=== PATIENT | female | born 1935 | race Caucasian/White ===

== ENCOUNTER → 2024-06-16 | Outpatient (CLI) | payer MEDICARE, SELFPAY ==
--- NOTE | 2024-06-16 10:45 | XR_ITS ---
Examination: PA lateral chest 2 views TECHNIQUE: Upright PA lateral chest 2 views Exam date and time: Generally 2024 1136 hours Comparison October 09, 2023 INDICATIONS: History pulmonary nodule FINDINGS: Again noted 5 mm pulmonary nodule right midlung Normal heart size Calcified granuloma left upper lobe IMPRESSION: Consider 6 month follow-up PA lateral chest to document stability of 5 mm pulmonary nodule right midlung
== END | disposition home or self-care (01) ==
LOC: CDIM 10:13
PROVIDERS: PCP Family Medicine; Referring Provider Family Medicine; Visit Provider Family Medicine
DX: R91.1 Solitary pulmonary nodule (principal)
CPT/HCPCS: 71046

== ENCOUNTER → 2025-01-11 | Outpatient (CLI) | payer OTHER, SELFPAY ==
--- NOTE | 2025-01-11 14:33 | XR_ITS ---
Examination: PA lateral chest 2 views TECHNIQUE: Upright PA lateral chest 2 views Date and time: January 11, 2025 1459 hours Comparison June 16, 2024 INDICATIONS: History solitary pulmonary nodule FINDINGS: 8mm calcified granuloma left upper lobe noted on chest films dating to 2019 Mild prominence left ventricle Mild vascular congestion. Increased AP dimension chest Kyphosis dorsal spine secondary to chronic osteoporotic mild wedging mid dorsal vertebral bodies Stable 4 mm pulmonary nodule right midlung compared with October 09, 2023 IMPRESSION: Recommend continued 6 month follow-up chest PA and lateral to document stability of right midlung pulmonary nodule
== END | disposition home or self-care (01) ==
LOC: CDIM 14:18
PROVIDERS: PCP Internal Medicine; Referring Provider Internal Medicine; Visit Provider Internal Medicine
DX: R91.1 Solitary pulmonary nodule (principal)
CPT/HCPCS: 71046

== ENCOUNTER 2025-05-11 19:38 | Emergency (ER) | payer OTHER, SELFPAY ==
[2025-05-11 19:42] VITALS: PULSE 110; RESP 24; O2SAT 96
[2025-05-11 19:47] VITALS: BMI 27.3
--- NOTE | 2025-05-11 19:49 | XR_ITS ---
Examination: Knee, right, 3 views Technique: Knee AP, lateral, oblique 3 views Date and time of exam: 2024, 2001 hours INDICATIONS: Patient fell today with into the knee, knee pain. FINDINGS: Severe osteopenia. No acute fracture No dislocation IMPRESSION: No acute fracture Advanced narrowing medial joint space Given the severe osteopenia, recommend short-term follow-up knee films as clinically warranted
--- NOTE | 2025-05-11 19:49 | XR_ITS ---
Examination: CT brain head without contrast. 2-D sagittal coronal reconstructions Date and time of exam: May 11, 2025, 2030 hours INDICATIONS: Ground-level fall today with injury to the head, head pain CTDI: vol (mGy): 45.2 DLP: (mGycm): 873 Technique: Multiple CT axial sections of the brain have been obtained, 5 mm slice thickness. Contrast has not been administered. 2-D sagittal, coronal reconstructions have been obtained Low dose protocols were performed. One or more of the following dose reduction techniques were used; automated exposure control, adjustment of the mA and/or KV according to patient size, use of iterative reconstruction technique. Findings: No significant ventricular enlargement. Intra-axial or extra-axial hemorrhage density is not seen. No mass effect or midline shift Basal cisterns are not remarkable. Fourth ventricle is midline. Cranial vault intact. Large area of encephalomalacia left occipital lobe Impression: Negative for acute hemorrhage, mass effect or midline shift
--- NOTE | 2025-05-11 19:49 | XR_ITS ---
Examination: CT cervical spine without contrast 2-D sagittal reconstructions 2-D coronal reconstructions 3-D reconstructions. Exam date and time: May 11, 2025, 2039 hours INDICATIONS: Patient fell today with injury of the neck, neck pain CTDI:vol (mGy) 13.5 DLP: (mGycm) 316 Technique: Multiple 2 mm axial sections of the cervical spine have been obtained. The coronal and sagittal reconstructions have been obtained. 3-D reconstructions have been obtained. Low dose protocols were performed. One or more of the following dose reduction techniques were used; automated exposure control, adjustment of the mA and/or KV according to patient size, use of iterative reconstruction technique. Findings: Axial sections demonstrate intact base of the skull. C1 exhibit satisfactory relationship to the odontoid. No acute cervical vertebral body fracture seen. Alignment posterior spinous processes satisfactory. Impression: No acute cervical fracture.
--- NOTE | 2025-05-11 19:49 | XR_ITS ---
Examination: Wrist, left 3 views Technique: Wrist AP, oblique, lateral 3 views Date and time of exam: May 11, 20252005 hours INDICATIONS: Patient fell today with injury to the wrist, wrist pain. FINDINGS: Acute comminuted impacted fracture distal radial metaphysis Comminuted fracture distal ulna Carpal bones intact Severe osteopenia IMPRESSION: Acute comminuted impacted fracture distal radial metaphysis
[2025-05-11 19:50] VITALS: BP 151/98; PULSE 104; RESP 24; TEMP 36.9; O2SAT 98
--- NOTE | 2025-05-11 19:52 | PD.EDADULT ---
ED General RME/HPI General Chief complaint: Fall Stated complaint: FALL Time Seen by Provider: 05/11/25 19:43 Arrival date/time: 05/11/25 19:38 CC: Left wrist pain right knee pain HPI status post fall. HPI approximately 2-1/2 hours ago the patient fell while outside feeding the cats. She was caught in a kneeling position holding onto a chair before she was discovered EMS was contacted and presents her to the emergency room where after reporting that she was found shivering in that same position. Patient denies LOC but admits she is on thinners secondary to A-fib patient is awake alert oriented complaining of left wrist wrist pain and right knee pain denies altered mentation nausea vomiting headache shortness of breath or difficulty breathing. Related Data Home Medications ?Medication ?Instructions ?Recorded ?Confirmed atorvastatin 10 mg tablet (Lipitor) 10 mg PO HS #0 tabs 10/26/15 07/14/22 cranberry fruit 400 mg capsule 4,200 mg PO QDAY ##0 10/26/15 07/14/22 levothyroxine 25 mcg tablet 25 mcg PO QDAY #0 tabs 10/26/15 07/14/22 omeprazole 40 mg capsule,delayed 40 mg PO QDAY 03/24/19 07/14/22 release carvedilol 6.25 mg tablet 6.25 mg PO BID 04/04/22 07/14/22 cyanocobalamin (vitamin B-12) 1,000 mcg PO QDAY 04/04/22 07/14/22 1,000 mcg tablet (Vitamin B-12) digoxin 125 mcg (0.125 mg) tablet 125 mcg PO EVERYOTHERDAY 04/04/22 07/14/22 furosemide 40 mg tablet 40 mg PO DAILY 04/04/22 07/14/22 magnesium 500 mg tablet 500 mg PO QDAY 04/04/22 07/14/22 potassium chloride 10 mEq 10 meq PO BID 04/04/22 07/14/22 tablet,extended release (Klor-Con) vit no.95-ferrous 1 tab PO QDAY 04/04/22 07/14/22 fumarate 28 mg-folic acid 800 mcg tablet () warfarin 5 mg tablet 5 mg PO HS 04/04/22 07/14/22 Previous Rx's ?Medication ?Instructions ?Recorded meloxicam 7.5 mg tablet 7.5 mg PO QDAY #10 tabs 05/11/25 nitrofurantoin 100 mg PO BID #14 caps 05/11/25 monohydrate/macrocrystals 100 mg capsule (Macrobid) ondansetron 4 mg disintegrating 4 mg PO Q8H #20 tabs 05/11/25 tablet Allergies Allergy/AdvReac Type Severity Reaction Status Date / Time soap Allergy Severe Rash Verified 05/11/25 19:46 amoxicillin Allergy Intermediate RASH, Verified 05/11/25 19:46 ITCHING latex Allergy Verified 05/11/25 19:46 Review of Systems Review of Systems Narrative Review of Systems: GEN: No fever, no chills, no weight loss EYES: No discharge, no visual changes, no pain HEENT: No ear pain, no congestion, no sore throat PULM: No shortness of breath, no cough, no congestion CV: No chest pain, no dyspnea on exertion, no palpitations GI: No nausea, no vomiting, no diarrhea, no pain, no constipation : No frequency, no urgency, no dysuria MUSC/SKEL: + joint pain, no back pain SKIN: No rash PSYCH: No hallucinations, no depression HEME/LYMPH: No easy bleeding or bruising tendencies NEURO: No weakness, no headache Past Medical History Past Medical History NEUROLOGIC: Negative Neurological Disorders or Seizures CARDIAC: Positive Cardiac Disorders, Atrial Fibrillation, Hypercholesterolemia and Congestive Heart Failure; Negative Angina RESPIRATORY: Positive Asthma; Negative Chronic Obstructive Pulmonary Disease (COPD) GASTROINTESTINAL: Positive Gastrointestinal Disorders, Ley's Esophagus, Hiatal Hernia, Hemorrhoids and Gastroesophageal Reflux Disease GENITOURINARY: Positive Inguinal Hernia; Negative Renal Disease REPRODUCTIVE: Positive Previous Pregnancies MUSCULOSKELETAL: Positive Musculoskeletal Disorders, Arthritis and Osteoporosis ENT: Positive Cataracts ENDOCRINE: Positive Hypothyroidism; Negative Diabetes Mellitus Type 1 or Diabetes Mellitus Type 2 HEMATOLOGIC: Positive Blood Disorders (takes warfarin) and Sickle Cell Disease OTHER HISTORY: Positive Chicken Pox; Negative Autoimmune Disease, Blood Transfusions, Blood Transfusion Reaction, Anesthesia Reactions or Cancer Family History FAMILY HISTORY: Negative Family Psychiatric Problems, Family Respiratory Disorders, Family Cardiac Disorders, Family Gastrointestinal Problems, Family Cancer, Family Surgery or Family Anesthesia Reaction Surgical History SURGICAL: Positive Hysterectomy; Negative Endocrine Surgery, Nephrectomy or Joint Replacement Social History SMOKING STATUS: Never smoker ED Exam Narrative Physical exam: [General: Obese not in any acute distress Head normocephalic HEENT: Within acceptable limits Neck is supple nontender Chest equal chest rise nontender to palpation Respiratory: Clear to auscultation no wheezes crackles or rubs CV: Rate rhythm is regular no murmurs rubs or clicks Abdomen is distended secondary to body habitus soft nontender no masses positive bowel sounds all 4 quadrants Back: No CVA tenderness no spinous process tenderness from cervical spine thoracic and lumbar spine Skin: Intact no petechiae rash induration ulceration or crepitus Extremities: Decreased range of motion of the left wrist secondary to pain cap refill in the digits less than 2 seconds on initial assessment fingers are cold to touch note: However patient was immobilized outside for 2 hours and 40 degree weather. Moving all other extremities against resistance cap refill less than 2 seconds neurosensory intact Neuro: Awake alert oriented x3 Glascow coma 15 no focal deficits] Course Quality Measures none Orders Category Date Time Status Miscellaneous Nursing Order NOW Care 05/11/25 22:09 Active Splint / Immobilizer STAT Care 05/11/25 22:[address] cervical spine wo con Stat Exams 05/11/25 19:[address] head/brain wo con Stat Exams 05/11/25 19:49 Completed XR ankle RT 2V Stat Exams 05/11/25 21:56 Completed XR knee RT 3V Stat Exams 05/11/25 19:49 Completed XR wrist comp LT min 3V Stat Exams 05/11/25 19:49 Completed CBC Stat Lab 05/11/25 20:04 Completed CMP [Comprehensive Metabolic Panel] Stat Lab 05/11/25 20:04 Completed Creatine Kinase Stat Lab 05/11/25 20:04 Completed Urinalysis Stat Lab 05/11/25 21:01 Completed Morphine* Inj Med 05/11/25 21:13 Discontinued 2 mg IVP X1 ONE Ondansetron Inj [Zofran Inj] Med 05/11/25 21:13 Discontinued 4 mg IVP X1 ONE Sodium Chloride 0.9% 1000 ml [Ns] 1,000 ml Med 05/11/25 22:37 Active IV 999 mls/hr cefTRIAXone/D5w 1gm IV premix [Rocephin/D5w 1gm IV Med 05/11/25 22:39 Pending premix] 1 gm in 50 ml IV X1 oxyCODONE/APAP 5/325 [Percocet 5/325] Med 05/11/25 22:16 Discontinued 1 tab PO X1 ONE Vital Signs Vital signs: Vital Signs Temperature 98.4 F 05/11/25 19:50 Pulse Rate 104 H 05/11/25 19:50 Respiratory Rate 24 H 05/11/25 19:50 Blood Pressure 151/98 H 05/11/25 19:50 Pulse Oximetry (%) 98 05/11/25 19:50 Oxygen Delivery Method Room Air 05/11/25 19:50 Discharge Plan Plan Patient Disposition: HOME (Self Care) Patient condition on transfer: Stable Prescriptions/Referrals Prescriptions/Med Rec: New meloxicam 7.5 mg tablet 7.5 mg PO QDAY Qty: 10 0RF ondansetron 4 mg tablet,disintegrating 4 mg PO Q8H Qty: 20 0RF nitrofurantoin monohyd/m-cryst [Macrobid] 100 mg capsule 100 mg PO BID Qty: 14 0RF Rx Instructions: must administer with a meal/food No Action atorvastatin [Lipitor] 10 MG tablet 10 mg PO HS Qty: 0 levothyroxine 25 mcg Tablet 25 mcg PO QDAY Qty: 0 cranberry fruit 400 MG capsule 4,200 mg PO QDAY Qty: 0 omeprazole 40 mg capsule,delayed release(DR/EC) 40 mg PO QDAY Patient Comments: TAKE ONE CAPSULE BY MOUTH DAILY furosemide 40 mg tablet 40 mg PO DAILY Patient Comments: TAKE 1 TABLET BY MOUTH ONCE A DAY FOR HEART magnesium 500 mg Tablet 500 mg PO QDAY carvedilol 6.25 mg tablet 6.25 mg PO BID Patient Comments: TAKE ONE TABLET BY MOUTH TWICE A DAY WITH FOOD FOR 90 DAYS cyanocobalamin (vitamin B-12) [Vitamin B-12] 1,000 mcg Tablet 1,000 mcg PO QDAY potassium chloride [Klor-Con 10] 10 mEq tablet extended release 10 meq PO BID Patient Comments: TAKE 1 TABLET BY MOUTH TWICE A DAY WITH FOOD warfarin 5 mg tablet 5 mg PO HS digoxin 125 mcg (0.125 mg) tablet 125 mcg PO EVERYOTHERDAY Patient Comments: TAKE ONE TABLET BY MOUTH DAILY FOR HEART 90 PNV no.95-ferrous fumarate-FA [] 28 mg iron- 800 mcg Tablet 1 tab PO QDAY Referrals: No Primary/Family,Physician [Primary Care Provider] - In 1 week Marcio Chen MD [Physician, Orthopedics] - In 1 week Problem List Clinical Impression: Fall, Fracture of wrist, Ankle contusion, UTI (urinary tract infection) Patient/Caregiver Discharge Instructions Other Activity Instructions:: You are going to be stiff and sore for the next several days use the medications for intermittent nausea and for pain to give you temporary relief. Alternate between the pain medication and Tylenol. Make sure you continue to take all your other medications as prescribed. Follow-up with the orthopod listed above. If there is a worsening of symptoms in spite of the medications return to the emergency room for reevaluation. Education Materials: ED Soft Tissue Contusion, ED Fracture, Wrist, General Print Language: Syrian Stand Alone Forms: [facility] Award Info., Patient Portal Info Letter PIPPA/PHOEBE Supervising Physician PIPPA/PHOEBE Supervising Physician: Fabricio Claudio ENP [facility] Clinical Information Provided by: patient and EMS Medical Records reviewed [facility] and EMS Meds/Rx considered, not ordered None Labs/Rad/Tests considered, not ordered None Chronic Illness/Social Conditions Explain: A-fib on thinners Labs Labs: interpreted by me Lab(s) Interpretation(s): CBC shows a mild leukocytosis of 15.7 no anemia thrombocytopenia CMP shows no significant electrolyte imbalances renal impairment transaminitis or T. bili elevation. Creatinine kinase at 229. Urine is turbid nitrite and leukocyte esterase positive. WBCs at 11 squamous epithelial at 64+ bacteria. Imaging Imaging interpretation: interpreted by me Imaging Interpretation(s): Ankle x-ray shows no acute fracture Wrist x-ray shows an impacted comminuted fracture and minimally displaced. CT head and C-spine are negative. Right knee is negative for fracture malalignment or dislocation. Medication Administration(s) none Medication Administration History Sodium Chloride (Ns) 1,000 mls @ 999 mls/hr IV .Q1H1M ONE Stop: 05/11/25 23:37 Ceftriaxone Sodium/Dextrose (Rocephin/D5w 1gm Iv Premix) 1 gm in 50 mls @ 100 mls/hr IV X1 ONE Stop: 05/11/25 23:08 Discontinued Medications Morphine Sulfate (Morphine Sulf Inj 4 Mg/Ml Vial) 2 mg IVP X1 ONE Stop: 05/11/25 21:14 Last Admin: 05/11/25 21:22 Dose: 2 mg Documented By: CLARA Ondansetron HCl (Ondansetron Inj 2 Mg/Ml Inj 2 Ml) 4 mg IVP X1 ONE; Protocol Stop: 05/11/25 21:14 Last Admin: 05/11/25 21:22 Dose: 4 mg Documented By: CLARA Oxycodone/Acetaminophen (Oxycodone/Apap 5/325 Tablet) 1 tab PO X1 ONE Stop: 05/11/25 22:17 Last Admin: 05/11/25 22:25 Dose: 1 tab Documented By: CLARA Diagnosis Differential Diagnosis ED Complaint MDM: Closed injury neck fracture elbow fracture wrist fracture knee fracture
[2025-05-11 20:59] LABS: Basophils # (Auto) 0.0 Thou/mm3 (0.0-0.2); Basophils % (Auto) 0 % (0-2.5); Eosinophils # (Auto) 0.1 Thou/mm3 (0.0-0.5); Eosinophils % (Auto) 0 % (0-10); Hematocrit 38.4 % (36.0-46.0); Hemoglobin 12.3 g/dL (12.0-16.0); Immature Granulocytes Auto 0.17 Thou/mm3 (0.00-0.00); Lymphocytes # (Auto) 1.8 Thou/mm3 (1.0-4.8); Lymphocytes % (Auto) 11 % (10-50); Mean Corpuscular HGB Conc 32.0 g/dl (31.0-37.0); Mean Corpuscular Hemoglobin 32.5 pg (25.0-35.0); Mean Corpuscular Volume 102 fL (80-100); Monocytes # (Auto) 1.7 Thou/mm3 (0.0-0.8); Monocytes % (Auto) 11 % (0-12); Neutrophils # (Auto) 11.9 Thou/mm3 (1.8-7.7); Neutrophils % (Auto) 76 % (37-80); Nucleated Red Blood Cell # 0.00 Thou/mm3 (0.00-0.00); Nucleated Red Blood Cell % 0 /100 WBC (0); Platelet Count 150 Thou/mm3 (140-440); RDW Standard Deviation 52.6 fL (36.4-46.3); Red Blood Count 3.78 Miln/mm3 (4.00-5.20); White Blood Count 15.7 Thou/mm3 (3.6-11.0)
[2025-05-11 21:15] LABS: Collection Type, Urine Clean Catch
[2025-05-11 21:17] LABS: Alanine Aminotransferase 26 U/L (10-49); Albumin, Serum 4.3 gm/dL (3.4-4.8); Albumin/Globulin Ratio 1.8 (1.2-2.2); Alkaline Phosphatase 51 U/L (46-116); Anion Gap 12 (7-16); Aspartate Amino Transferase 38 U/L (0-34); BUN/Creatinine Ratio 22 Ratio (12-20); Bilirubin,Total 0.7 mg/dL (0.3-1.2); Blood Urea Nitrogen 22 mg/dL (9-23); Calcium 9.4 mg/dL (8.3-10.6); Calcium (Corrected) 9.4 mg/dL (8.5-10.1); Carbon Dioxide 25.6 mMol/L (20.0-31.0); Chloride 107 mMol/L (98-107); Creatine Kinase 229 U/L (34-171); Creatinine (Component) 1.0 mg/dL (0.6-1.3); Estimated Creatinine Clearance 33.8 mL/min (>60); Globulin 2.4 gm/dL (2.3-3.5); Glucose 108 mg/dL (74-106); Osmolality,Calculated 293 (275-295); Potassium 4.2 mMol/L (3.4-5.1); Sodium 145 mMol/L (136-145); Total Protein 6.7 gm/dL (5.7-8.2); eGFR 54 See Note
[2025-05-11] MEDS: ONDANSETRON INJ 2 MG/ML INJ 2 ML 4 MG IVP (21:22)
[2025-05-11] MEDS: MORPHINE SULF INJ 4 MG/ML VIAL 2 MG IVP (21:22)
[2025-05-11 21:37] LABS: Bacteria,Urine 4+; Bilirubin,Urine Negative (Negative); Blood,Urine Negative (Negative); Clarity,Urine Turbid (Clear/Hazy); Color,Urine Yellow (Lt Yel-Yel); Glucose, Urine Negative (Negative); Ketones,Urine Negative (Negative); Leukocyte Esterase,Urine Positive (Negative); Nitrite,Urine Positive (Negative); PH,Urine 6.5 (5.0-7.0); Protein,Urine Trace (Neg - Trace); RBC,Urine 8 /hpf (0-3); Specific Gravity,Urine 1.028 (1.001-1.035); Squamous Epithelial Cell,Urine 6 /hpf (0-5); Urobilinogen,Urine 2.0 mg/dL (0.0-1.0); WBC,Urine 11 /hpf (0-5)
--- NOTE | 2025-05-11 21:56 | XR_ITS ---
EXAMINATION: Right ankle 2 views TECHNIQUE: AP lateral right ankle 2 views INDICATIONS: Patient fell today with injury to the ankle, ankle pain. FINDINGS: Severe osteopenia No acute fracture No ankle dislocation IMPRESSION: No acute fracture
[2025-05-11 22:30] VITALS: BP 122/70; PULSE 126; RESP 24; O2SAT 96
[2025-05-11] MEDS: SODIUM CHLORIDE 0.9% 1000 ML 1,000 ML 999 ML IV (22:47)
[2025-05-11] MEDS: cefTRIAXone/D5w 1gm IV premix 1 GM/50 ML BAG IV (23:10)
[2025-05-11 23:28] VITALS: BP 113/78; PULSE 105; RESP 24; TEMP 37.1; O2SAT 98
== END 2025-05-11 23:43 | disposition home or self-care (01) ==
PROVIDERS: Registered Nurse General Practice; Emergency Provider Emergency Medicine
DX: S52.502A Unspecified fracture of the lower end of left radius, initial encounter for closed fracture (principal); S90.01XA Contusion of right ankle, initial encounter; N39.0 Urinary tract infection, site not specified; S09.90XA Unspecified injury of head, initial encounter; S19.9XXA Unspecified injury of neck, initial encounter; M25.561 Pain in right knee; D72.829 Elevated white blood cell count, unspecified; W19.XXXA Unspecified fall, initial encounter; Y93.89 Activity, other specified; Y92.89 Other specified places as the place of occurrence of the external cause
CPT/HCPCS: 36415; 70450; 72125; 73110; 73562; 73600; 80053; 81001; 82550; 85025; 99284; J0696; J2270; J2405; J7030; A9270

== ENCOUNTER → 2025-05-30 | Outpatient (CLI) | payer OTHER, SELFPAY ==
--- NOTE | 2025-05-30 09:50 | XR_ITS ---
EXAMINATION: PA lateral chest 2 views TECHNIQUE: Upright PA lateral chest 2 views Date and time: May 30, 2025, 10:28 a.m., comparison January 11, 2025 INDICATIONS: Coughing beginning 1 week ago. FINDINGS: Normal heart size No interval pneumonia or pulmonary edema Stable granuloma left upper lobe Increased AP dimension chest Severe osteopenia with kyphosis dorsal spine IMPRESSION: COPD Mild basilar bronchitis pattern No pneumonia or pulmonary edema
[2025-05-30 10:58] LABS: Basophils # (Auto) 0.0 Thou/mm3 (0.0-0.2); Basophils % (Auto) 0 % (0-2.5); Eosinophils # (Auto) 0.2 Thou/mm3 (0.0-0.5); Eosinophils % (Auto) 2 % (0-10); Hematocrit 44.2 % (36.0-46.0); Hemoglobin 14.8 g/dL (12.0-16.0); Immature Granulocytes Auto 0.06 Thou/mm3 (0.00-0.00); Lymphocytes # (Auto) 2.9 Thou/mm3 (1.0-4.8); Lymphocytes % (Auto) 32 % (10-50); Mean Corpuscular HGB Conc 33.5 g/dl (31.0-37.0); Mean Corpuscular Hemoglobin 32.9 pg (25.0-35.0); Mean Corpuscular Volume 98 fL (80-100); Monocytes # (Auto) 1.0 Thou/mm3 (0.0-0.8); Monocytes % (Auto) 11 % (0-12); Neutrophils # (Auto) 5.0 Thou/mm3 (1.8-7.7); Neutrophils % (Auto) 55 % (37-80); Nucleated Red Blood Cell # 0.00 Thou/mm3 (0.00-0.00); Nucleated Red Blood Cell % 0 /100 WBC (0); Platelet Count 229 Thou/mm3 (140-440); RDW Standard Deviation 50.0 fL (36.4-46.3); Red Blood Count 4.50 Miln/mm3 (4.00-5.20); White Blood Count 9.1 Thou/mm3 (3.6-11.0)
[2025-05-30 11:09] LABS: INR 2.1 (0.9-1.3); Partial Thromboplastin Time 35.4 Seconds (22.0-36.0); Prothrombin Time 20.9 Seconds (9.0-12.2)
[2025-05-30 11:11] LABS: Glucose Estimated Average 111 mg/dL (80-131); Hemoglobin A1C 5.5 % Hgb (4.8-6.0)
[2025-05-30 11:15] LABS: Alanine Aminotransferase 25 U/L (10-49); Albumin, Serum 4.6 gm/dL (3.4-4.8); Albumin/Globulin Ratio 1.8 (1.2-2.2); Alkaline Phosphatase 58 U/L (46-116); Anion Gap 9 (7-16); Aspartate Amino Transferase 32 U/L (0-34); BUN/Creatinine Ratio 19 Ratio (12-20); Bilirubin,Total 1.0 mg/dL (0.3-1.2); Blood Urea Nitrogen 21 mg/dL (9-23); Calcium 9.5 mg/dL (8.3-10.6); Calcium (Corrected) 9.5 mg/dL (8.5-10.1); Carbon Dioxide 28.7 mMol/L (20.0-31.0); Cardiac Risk Estimate 2.6 RATIO (3.7-5.6); Chloride 104 mMol/L (98-107); Cholesterol 151 mg/dL (132-200); Creatinine (Component) 1.1 mg/dL (0.6-1.3); Free T4 (Free Thyroxine) 1.52 ng/dL (0.89-1.76); Globulin 2.6 gm/dL (2.3-3.5); Glucose 114 mg/dL (74-106); HDL Cholesterol 58 mg/dL (40-60); LDL Cholesterol,Calculated 72 mg/dL (0-130); Osmolality,Calculated 287 (275-295); Potassium 3.9 mMol/L (3.4-5.1); Sodium 142 mMol/L (136-145); Thyroid Stimulating Hormone 2.42 uIU/mL (0.55-4.78); Total Protein 7.2 gm/dL (5.7-8.2); Triglycerides 105 mg/dL (30-150); eGFR 48 See Note
== END | disposition home or self-care (01) ==
LOC: CDIM 09:34 → COPL 09:34
PROVIDERS: PCP Internal Medicine; Referring Provider Internal Medicine; Visit Provider Radiology Diagnostic Radiology
DX: J44.9 Chronic obstructive pulmonary disease, unspecified (principal); E03.9 Hypothyroidism, unspecified; E78.2 Mixed hyperlipidemia; I48.0 Paroxysmal atrial fibrillation; I25.10 Atherosclerotic heart disease of native coronary artery without angina pectoris
CPT/HCPCS: 36415; 71046; 80053; 80061; 83036; 84439; 84443; 85025; 85610; 85730